=== PATIENT | male | born 1985 ===

== ENCOUNTER → 2017-03-30 | Outpatient (CLI) | payer OTHER ==
[2017-03-30 13:48] LABS: BASO % 0.3 %; BASO ABS # 0.03 K/uL (0-0.2); HEMATOCRIT 39.1 % (42-52); IG% 0.6 %; LYMPH % 16.1 %; LYMPH ABS # 1.53 K/uL (1.2-3.4); MEAN CELL VOLUME 87.1 fL (80-100); MEAN CORPUSCULAR HEMOGLOBIN 28.7 pg (25-34); MEAN PLATELET VOLUME 10.1 fL (7.4-10.4); MONO % 11.6 %; NEUT % 69.4 %; PLATELET COUNT 358 K/uL (130-400); RED BLOOD COUNT 4.49 M/uL (4.7-6.1); WHITE BLOOD COUNT 9.53 K/uL (4.8-10.8)
[2017-03-30 13:57] LABS: COMPLETE YES
[2017-03-30 14:17] LABS: ALB/GLOB RATIO 0.9 (0.9-2); ALKALINE PHOSPHATASE 87 U/L (45-117); ALT/SGPT 43 U/L (12-78); AST/SGOT 23 U/L (15-37); BLOOD UREA NITROGEN 9 mg/dl (7-18); BUN/CREATININE RATIO 8.5 (10-20); CALCIUM 9.8 mg/dl (8.5-10.1); CARBON DIOXIDE 27 mmol/L (21-32); CHLORIDE 101 mmol/L (98-107); GLUCOSE 67 mg/dl (70-99); POTASSIUM 4.1 mmol/L (3.5-5.1); SODIUM 138 mmol/L (136-145)
== END | disposition home or self-care (01) ==
LOC: C.LABSPEC 13:35
PROVIDERS: ATTEND Nurse Practitioner Adult Health
DX: R50.9 Fever, unspecified (principal)